=== PATIENT | female | born 1990 | race Two or more races ===

== ENCOUNTER 2017-07-23 10:05 | Emergency (ER) | payer OTHER ==
[2017-07-23 10:21] VITALS: BP 132/92; PULSE 88; TEMP 98.5; BMI 24.0
[2017-07-23] MEDS ORDERED: diphenhydrAMINE HCL 50 MG CAPSULE ONE (10:22)
[2017-07-23] MEDS ORDERED: predniSONE 20 MG TABLET (UD) ONE (10:23)
--- NOTE | 2017-07-23 10:25 | PDOC ---
History of Present Illness - General Chief Complaint: Allergic Reaction Stated Complaint: ALLERGIC RASH Time Seen by Provider: 07/23/17 10:25 History Source: Patient Exam Limitations: No Limitations - History of Present Illness Initial Comments: 07/23/17 10:51 Pt presents to the ED complaining of hives to both forearms, that has been persistent for two days. History of multiple food allergies and psoriasis. States that she took her epi pen and benadryl for these symptoms yesterday, and that the symptoms resolved but recurred again this morning. Denies throat tightness, facial swelling, nausea or vomiting, lightheadness or syncope. Also denies rash to other parts of her body. Past History - Past Medical History Allergies/Adverse Reactions: Allergies Allergy/AdvReac Type Severity Reaction Status Date / Time MULTIPLE FOOD ALLERIGIES Allergy Intermediate Hives Uncoded 07/23/17 10:18 Home Medications: Ambulatory Orders Albuterol Sulfate Inhaler - [Ventolin Hfa Inhaler -] 1 - 2 inh PO Q4H PRN #1 inhaler 04/28/17 Clotrimazole [Lotrimin 1% Solution -] 1 applic TP BID 04/28/17 Guaifenesin AC [Robitussin AC] 10 ml PO HS #100 ml MDD 40 ml 04/28/17 Prednisone [Prednisone 50 MG TABLETS] 50 mg PO DAILY #4 tablet 07/23/17 COPD: No - Suicide/Smoking/Psychosocial Hx Smoking History: Never smoked Hx Alcohol Use: No Drug/Substance Use Hx: No Substance Use Type: None Review of Systems - Review of Systems Able to Perform ROS?: Yes Is the patient limited Egyptian proficient: No Constitutional: No: Symptoms Reported, See HPI, Chills, Diaphoresis, Fever, Loss of Appetite, Malaise, Night Sweats, Weakness, Weight Stable, Unintentional Wgt. Loss, Unexplained wgt Loss, Other HEENTM: No: Symptoms Reported, See HPI, Eye Pain, Blurred Vision, Tearing, Recent change in vision, Double Vision, Cataracts, Ear Pain, Ocular Prothesis, Ear Discharge, Nose Pain, Nose Congestion, Tinnitus, Nose Bleeding, Hearing Loss , Throat Pain, Throat Swelling, Mouth Pain, Dental Problems, Difficulty Swallowing, Mouth Swelling, Other Respiratory: No: Symptoms reported, See HPI, Cough, Orthopnea, Shortness of Breath, SOB with Exertion, SOB at Rest, Stridor, Wheezing, Productive cough, Hemoptysis, Other Cardiac (ROS): No: Symptoms Reported, See HPI, Chest Pain, Edema, Irregular Heart Rate, Lightheadedness, Palpitations, Syncope, Chest Tightness, Other ABD/GI: No: Symptoms Reported, See HPI, Abdominal Distended, Abd. Pain w/ defecation, Blood Streaked Bowels, Constipated, Diarrhea, Difficulty Swallowing , Nausea, Poor Appetite, Poor Fluid Intake, Rectal Bleeding, Vomiting, Indigestion, Abdominal cramping, Tarry Stools, Other *Physical Exam - Vital Signs Last Vital Signs Temp Pulse Resp BP Pulse Ox 98.5 F 88 16 132/92 99 07/23/17 10:15 07/23/17 10:15 07/23/17 10:15 07/23/17 10:15 07/23/17 10:15 - Physical Exam General Appearance: Yes: Nourished, Appropriately Dressed HEENT: positive: Normal ENT Inspection Neck: positive: Supple Respiratory/Chest: positive: Lungs Clear, Normal Breath Sounds Cardiovascular: positive: Regular Rhythm, Regular Rate, S1, S2 Integumentary: positive: Normal Color, Dry, Hives (hives on forearms only. no other rashes observed on complete skin exam) Neurologic: positive: Fully Oriented, Alert, Normal Mood/Affect Medical Decision Making - Medical Decision Making 07/23/17 10:57 Pt presents to the ED with hives to both forearms that have been intermittent for two days. No facial symptoms, no indications of anaphylaxis. Will treat with prednisone, briefly observe to watch for worsening reaction and likely discharge home with rx for prednisone and follow up with her PMD. *DC/Admit/Observation/Transfer Diagnosis at time of Disposition: Allergic reaction Qualifiers: Encounter type: initial encounter Qualified Code(s): T78.40XA - Allergy, unspecified, initial encounter - Discharge Dispostion Disposition: HOME Condition at time of disposition: Good Admit: No - Prescriptions Prescriptions: Prednisone [Prednisone 50 MG TABLETS] 50 mg PO DAILY #4 tablet - Referrals Referrals: Juhi Ely MD [Primary Care Provider] - - Patient Instructions Printed Discharge Instructions: DI for General Allergic Reactions Additional Instructions: return to the ED for worsening hives, facial swelling, nausea and vomiting, passing out. if you have facial swelling, passing out or shortness of breath, use your epi pen and then call 911. Make sure that you see your doctor this week. you should visit the ED if you need to use your epi pen. - Post Discharge Activity
== END 2017-07-23 11:33 | disposition home or self-care (01) ==
LOC: FER 10:05
DX: T78.40XA Allergy, unspecified, initial encounter (principal)
CPT/HCPCS: 99282-25

== ENCOUNTER 2017-07-29 11:35 | Emergency (ER) | payer OTHER ==
[2017-07-29 11:45] VITALS: BP 128/92; PULSE 82; TEMP 98.2; BMI 24.5
--- NOTE | 2017-07-29 11:51 | PDOC ---
Attending Attestation - Resident Resident Name: Óscar Sousa - HPI HPI: 07/31/17 02:06 Pt presents to the ED complaining of rash to both forearms and legs. Denies pruritis. Denies fever, nausea or vomiting. Denies facial swelling or shortness of breath. - Physicial Exam PE: 07/31/17 02:07 Agree with resident exam. Patient has raised, blanching lesions with central clearing. No other injuries. - Medical Decision Making 07/31/17 02:13 Agree with resident plan. Patient presents with rash consistent with erythema annularum cetrifugale. Most likely secondary to allergy. No urticaria or signs of anaphylaxis. Will treat with prednisone and discharge home with follow up with lockstitch shoulder joiner.
[2017-07-29] MEDS ORDERED: predniSONE 20 MG TABLET (UD) PO ONE (12:19)
[2017-07-29] MEDS ORDERED: predniSONE 20 MG TABLET (UD) ONE (12:21)
--- NOTE | 2017-07-29 12:40 | PDOC ---
History of Present Illness - General Chief Complaint: Rash Stated Complaint: PERSISTENT RASH ARMS, LEG Time Seen by Provider: 07/29/17 11:49 History Source: Patient Exam Limitations: No Limitations - History of Present Illness Initial Comments: 07/29/17 12:39 The patient is a 26F with a PMH of allergies, never had anaphylaxis, who presents to the ER with a rash. The patient states that she was seen 7 days ago in our facility for a similar rash which went away with benadryl and steroids ( given outpatient). 2 days ago, the rash has returned on her forearms and mildly on her proximal leg. She denies any CP or SOB or throat swelling. She denies any itchiness to her rash or pain. Past History - Past Medical History Allergies/Adverse Reactions: Allergies Allergy/AdvReac Type Severity Reaction Status Date / Time Fish Containing Products Allergy Verified 07/29/17 11:41 fish derived Allergy Verified 07/29/17 11:41 No Known Drug Allergies Allergy Verified 07/29/17 11:41 soybean Allergy Verified 07/29/17 11:41 strawberry Allergy Verified 07/29/17 11:41 tomato Allergy Verified 07/29/17 11:41 MULTIPLE FOOD ALLERIGIES Allergy Intermediate Hives Uncoded 07/29/17 11:41 Home Medications: Ambulatory Orders Clotrimazole [Lotrimin 1% Solution -] 1 applic TP BID 04/28/17 Prednisone [Prednisone 50 MG TABLETS] 50 mg PO DAILY #4 tablet 07/23/17 Diphenhydramine HCl [Benadryl -] 25 mg PO BID 07/29/17 Fexofenadine HCl [Erika Allergy] mg PO DAILY 07/29/17 Methylprednisolone [Medrol Dose Clement] 4 mg PO ASDIR #21 tablet 07/29/17 COPD: No Other medical history: MULTIPLE ALLERGIES - Suicide/Smoking/Psychosocial Hx Smoking History: Never smoked Have you smoked in the past 12 months: No Hx Alcohol Use: No Drug/Substance Use Hx: No Substance Use Type: None Review of Systems - Review of Systems Able to Perform ROS?: Yes Comments:: 07/29/17 12:50 GENERAL/CONSTITUTIONAL: No fever or chills. No weakness. HEAD, EYES, EARS, NOSE AND THROAT: No change in vision. No ear pain or discharge. No sore throat. CARDIOVASCULAR: No chest pain, palpitations, or lightheadedness. RESPIRATORY: No cough, wheezing, shortness of breath, or hemoptysis. GASTROINTESTINAL: No nausea, vomiting, diarrhea, constipation, or abdominal pain. GENITOURINARY: No dysuria, frequency, hematuria, or change in urination. MUSCULOSKELETAL: No joint or muscle swelling or pain. No neck or back pain. SKIN: Positive for rash. NEUROLOGIC: No headache, numbness, tingling, weakness, loss of consciousness, or change in strength/sensation. ENDOCRINE: No increased thirst. No abnormal weight change. HEMATOLOGIC/LYMPHATIC: No anemia, easy bleeding, or history of blood clots. ALLERGIC/IMMUNOLOGIC: Positive for allergies and skin rash. Is the patient limited Bhutanese proficient: No *Physical Exam - Vital Signs Last Vital Signs Temp Pulse Resp BP Pulse Ox 98.2 F 82 18 128/92 100 07/29/17 11:35 07/29/17 11:35 07/29/17 11:35 07/29/17 11:35 07/29/17 11:35 - Physical Exam Comments: 07/29/17 12:50 GENERAL: Well developed, well nourished. Awake and alert. No acute distress. HEENT: Normocephalic, atraumatic. Hearing grossly normal. Moist mucous membranes. PERRLA, EOMI. No conjunctival pallor. Sclera are non-icteric. Oropharynx is clear. NECK: Supple. Full ROM. No JVD. CARDIOVASCULAR: Regular rate and rhythm. No murmurs, rubs, or gallops. PULMONARY: No evidence of respiratory distress. Lungs clear to auscultation bilaterally. No wheezing, rales or rhonchi. ABDOMINAL: Soft. Non-tender. Non-distended. No rebound or guarding. GENITOURINARY: No CVA tenderness bilaterally. MUSCULOSKELETAL: Normal range of motion at all joints. No bony deformities or tenderness. EXTREMITIES: No cyanosis. No clubbing. No edema. No calf tenderness. SKIN: Warm and dry. Circular, blanchable, raised rash of multiple sizes present on forearms and on proximal leg. Normal capillary refill. No rashes. No jaundice. NEUROLOGICAL: Alert, awake, appropriate. Cranial nerves 2-12 intact. Normal speech. Gait is normal without ataxia. PSYCHIATRIC: Cooperative. Good eye contact. Appropriate mood and affect. ED Treatment Course - Medications Given in the ED: ED Medications Discontinued Medications Generic Name Dose Route Start Last Admin Trade Name Teresa PRMayra Reason Stop Dose Admin Prednisone 60 mg 07/29/17 12:19 07/29/17 12:25 Deltasone - PO 07/29/17 12:20 60 mg ONCE ONE Administration Medical Decision Making - Medical Decision Making 07/29/17 12:51 The patient is a 26F with a hx of allergies who presents with a recurrent rash on her forearms. The rash is not itchy but resembles urticaria. 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 Will give a medrol dose pack and will d/c with allergy and derm f/ u. Pt agrees and is ready for d/c. *DC/Admit/Observation/Transfer Diagnosis at time of Disposition: Rash - Discharge Dispostion Disposition: HOME Condition at time of disposition: Stable Admit: No - Prescriptions Prescriptions: Methylprednisolone [Medrol Dose Clement] 4 mg PO ASDIR #21 tablet - Referrals Referrals: Cathie Brothers MD [Staff Physician] - Miguel De La Cruz MD [Staff Physician] - - Patient Instructions Printed Discharge Instructions: DI for Rash Additional Instructions: Please return to the ER if symptoms persist, worsen, or new symptoms arise. Please follow up with your primary care physician in 2-3 days. Please follow up with Dr. Brothers, dermatology, and Dr. De La Cruz, ENT/Allergy. Please return to the ER if you have any signs or symptoms of chest pain, shortness of breath, uncontrollable fever, chills, nausea, vomiting, numbness, tingling, or weakness in any part of your body, changes in vision, or slurred speech. Please take your medications as prescribed. - Post Discharge Activity
== END 2017-07-29 12:55 | disposition home or self-care (01) ==
LOC: FER 11:35
DX: R21 Rash and other nonspecific skin eruption (principal)
CPT/HCPCS: 99282-25

== ENCOUNTER 2017-11-03 10:48 | Emergency (ER) | payer OTHER ==
[2017-11-03 11:04] VITALS: BP 130/85; PULSE 87; TEMP 97.8; BMI 26.4
--- NOTE | 2017-11-03 11:06 | PDOC ---
History of Present Illness - General History Source: Patient Exam Limitations: No Limitations - History of Present Illness Initial Comments: 11/03/17 10:49 27 yo F with h/o allergies, to various food items here today c/o bumps that are like hives. took allergy pill yesterday, min relief. states is not itchy. no lip or tongue swelling. no sob or wheezing. no new lotions or detergents or soaps. tried to see pcp but couldn't get in for evaluation today. no new medications 11/03/17 10:50 <Lorna Andres - Last Filed: 11/03/17 11:08> <Maty Oneill - Last Filed: 11/03/17 22:25> - General Chief Complaint: Allergic Reaction Stated Complaint: HIVES Time Seen by Provider: 11/03/17 10:49 Past History - Past Medical History COPD: No - Suicide/Smoking/Psychosocial Hx Smoking History: Never smoked Have you smoked in the past 12 months: No Hx Alcohol Use: No Drug/Substance Use Hx: No Substance Use Type: None <Lorna Andres - Last Filed: 11/03/17 11:08> <Maty Oneill - Last Filed: 11/03/17 22:25> - Past Medical History Allergies/Adverse Reactions: Allergies Allergy/AdvReac Type Severity Reaction Status Date / Time Fish Containing Products Allergy Verified 11/03/17 10:49 fish derived Allergy Verified 11/03/17 10:49 No Known Drug Allergies Allergy Verified 11/03/17 10:49 soybean Allergy Verified 11/03/17 10:49 strawberry Allergy Verified 11/03/17 10:49 tomato Allergy Verified 11/03/17 10:49 MULTIPLE FOOD ALLERIGIES Allergy Intermediate Hives Uncoded 11/03/17 10:49 Home Medications: Ambulatory Orders Secukinumab [Cosentyx Pen] 150 mg SQ ASDIR 11/03/17 predniSONE [Deltasone -] 20 mg PO BID #6 tablet 11/03/17 predniSONE [Deltasone -] 20 mg PO BID #6 tablet 11/03/17 Review of Systems - Review of Systems Constitutional: No: Chills, Diaphoresis, Fever Respiratory: No: Cough, Orthopnea Cardiac (ROS): No: Chest Pain ABD/GI: No: Abdominal Distended Musculoskeletal: No: See HPI Integumentary: Yes: Rash. No: Pruritus All Other Systems: Reviewed and Negative <Lorna Andres - Last Filed: 11/03/17 11:08> *Physical Exam - Physical Exam General Appearance: Yes: Appropriately Dressed HEENT: positive: Normal ENT Inspection, Other (no tongue or lip swelling. ) Respiratory/Chest: positive: Lungs Clear, Normal Breath Sounds Cardiovascular: positive: Regular Rhythm, Regular Rate, S1, S2 Gastrointestinal/Abdominal: positive: Normal Bowel Sounds, Flat, Soft. negative : Tender Integumentary: positive: Normal Color, Dry, Warm, Hives, Other (target like erythema multiforme like rash over extremities. plaque like lesions elbow) Neurologic: positive: Fully Oriented, Alert, Normal Mood/Affect <Lorna Andres - Last Filed: 11/03/17 11:08> - Vital Signs Last Vital Signs Temp Pulse Resp BP Pulse Ox 97.8 F 87 20 130/85 100 11/03/17 10:48 11/03/17 10:48 11/03/17 10:48 11/03/17 10:48 11/03/17 10:48 <Maty Oneill - Last Filed: 11/03/17 22:25> ED Treatment Course - ADDITIONAL ORDERS Additional order review: Laboratory Results 11/03/17 11:16 Urine HCG, Qual Negative - Medications Given in the ED: ED Medications Discontinued Medications Generic Name Dose Route Start Last Admin Trade Name Freq PRN Reason Stop Dose Admin Diphenhydramine HCl 50 mg 11/03/17 11:55 11/03/17 11:55 Benadryl - PO 11/03/17 11:56 50 mg NOW ONE Administration Prednisone 60 mg 11/03/17 11:55 11/03/17 11:56 Deltasone - PO 11/03/17 11:56 60 mg NOW ONE Administration <Maty Oneill - Last Filed: 11/03/17 22:25> Medical Decision Making - Medical Decision Making 11/03/17 10:51 27 yo with rash, plan steroids, benadryl and follow up [facility] dermatology . <Lorna Andres - Last Filed: 11/03/17 11:08> *DC/Admit/Observation/Transfer <Lorna Andres - Last Filed: 11/03/17 11:08> <Maty Oneill - Last Filed: 11/03/17 22:25> Diagnosis at time of Disposition: Urticaria, Erythema multiforme - Discharge Dispostion Disposition: HOME Condition at time of disposition: Improved - Prescriptions Prescriptions: predniSONE [Deltasone -] 20 mg PO BID #6 tablet - Patient Instructions Printed Discharge Instructions: Erythema Multiforme, Hives Additional Instructions: take prednisone 20 mg twice daily x 3 days starting tomorrow 11/04. return for any difficulty breathing, tongue or lip swelling or any conerns. you should follow up with your online marketing manager on sunday call to schedule. you can take benadryl 25 mg every 6 hours as needed for itching.
[2017-11-03] MEDS ORDERED: predniSONE 20 MG TABLET (UD) ONE ×2 (11:40→11:42)
[2017-11-03] MEDS ORDERED: diphenhydrAMINE HCL 25 MG CAPSULE (FP) PO ONE ×3 (11:40→11:55)
[2017-11-03] MEDS ORDERED: predniSONE 20 MG TABLET (UD) PO ONE ×2 (11:41→11:55)
[2017-11-03] MEDS ORDERED: diphenhydrAMINE HCL 50 MG CAPSULE PO ONE (11:42)
== END 2017-11-03 11:57 | disposition home or self-care (01) ==
LOC: FER 10:48
DX: L50.9 Urticaria, unspecified (principal); L51.9 Erythema multiforme, unspecified
CPT/HCPCS: 84703; 99281-25

== ENCOUNTER 2018-02-22 10:30 | Emergency (ER) | payer OTHER ==
[2018-02-22 10:36] VITALS: BP 129/65; PULSE 84; TEMP 99.1; BMI 27.7
[2018-02-22] MEDS ORDERED: DEXAMETHASONE SOD PHOSPHATE 10 MG/1 ML VIAL IM ONE (10:56)
[2018-02-22] MEDS ORDERED: DEXAMETHASONE SOD PHOSPHATE 10 MG/1 ML VIAL ONE ×2 (10:59→11:00)
--- NOTE | 2018-02-22 11:02 | PDOC ---
History of Present Illness - General Chief Complaint: Rash Stated Complaint: RED RASH HANDS AND FEET Time Seen by Provider: 02/22/18 10:54 History Source: Patient Exam Limitations: Clinical Condition - History of Present Illness Initial Comments: 02/22/18 10:56 Patient with history of psoriasis present with complain of diffuse red rash to bilateral elbow and forearm and bilateral lower legs upon with this morning. Patient does not know what caused symptoms. Patient reported rash is very itchy. Denies any other symptoms Timing/Duration: 24 hours Past History - Past Medical History Allergies/Adverse Reactions: Allergies Allergy/AdvReac Type Severity Reaction Status Date / Time Fish Containing Products Allergy Verified 02/22/18 10:33 fish derived Allergy Verified 02/22/18 10:33 No Known Drug Allergies Allergy Verified 02/22/18 10:33 soybean Allergy Verified 02/22/18 10:33 strawberry Allergy Verified 02/22/18 10:33 tomato Allergy Verified 02/22/18 10:33 MULTIPLE FOOD ALLERIGIES Allergy Intermediate Hives Uncoded 02/22/18 10:33 Home Medications: Ambulatory Orders Hydrocortisone 2.5% Topical Cr [Anusol-Hc -] 1 applic TP BID 7 Days #1 tube Hydroxyzine HCl 25 mg PO TID PRN #20 tablet 02/22/18 NK [No Known Home Medication] 02/22/18 Prednisone [Deltasone] 20 mg PO BID 4 Days #8 tablet 02/22/18 COPD: No Other medical history: PSORIASIS - Suicide/Smoking/Psychosocial Hx Smoking History: Never smoked Have you smoked in the past 12 months: No Hx Alcohol Use: No Drug/Substance Use Hx: No Substance Use Type: None Review of Systems - Review of Systems Able to Perform ROS?: Yes Is the patient limited Japanese proficient: No Constitutional: No: Chills, Diaphoresis, Fever, Loss of Appetite, Malaise, Night Sweats, Weakness, Weight Stable, Unintentional Wgt. Loss, Unexplained wgt Loss, Other HEENTM: No: Eye Pain, Blurred Vision, Tearing, Recent change in vision, Double Vision, Cataracts, Ear Pain, Ocular Prothesis, Ear Discharge, Nose Pain, Nose Congestion, Tinnitus, Nose Bleeding, Hearing Loss, Throat Pain, Throat Swelling , Mouth Pain, Dental Problems, Difficulty Swallowing, Mouth Swelling, Other Respiratory: No: Cough, Orthopnea, Shortness of Breath, SOB with Exertion, SOB at Rest, Stridor, Wheezing, Productive cough, Hemoptysis, Other Cardiac (ROS): No: Chest Pain, Edema, Irregular Heart Rate, Lightheadedness, Palpitations, Syncope, Chest Tightness, Other ABD/GI: No: Abdominal Distended, Abd. Pain w/ defecation, Blood Streaked Bowels , Constipated, Diarrhea, Difficulty Swallowing, Nausea, Poor Appetite, Poor Fluid Intake, Rectal Bleeding, Vomiting, Indigestion, Abdominal cramping, Tarry Stools, Other Musculoskeletal: No: Back Pain, Gout, Joint Pain, Joint Swelling, Muscle Pain, Muscle Weakness, Neck Pain, Joint Stiffness, Other Integumentary: Yes: See HPI, Pruritus (over rash area), Rash (b/l posterior elbow, forearm and lower legs) All Other Systems: Reviewed and Negative *Physical Exam - Vital Signs Last Vital Signs Temp Pulse Resp BP Pulse Ox 99.1 F 84 19 129/65 98 02/22/18 10:33 02/22/18 10:33 02/22/18 10:33 02/22/18 10:33 02/22/18 10:33 - Physical Exam Comments: 02/22/18 10:58 GENERAL: Well developed, well nourished. Awake and alert. No acute distress. HEENT: Normocephalic, atraumatic. PERRLA, EOMI. No conjunctival pallor. Sclera are non- icteric. Moist mucous membranes. Oropharynx is clear. NECK: Supple. Full ROM. No JVD. Carotid pulses 2+ and symmetric, without bruits. No thyromegaly. No lymphadenopathy. CARDIOVASCULAR: Regular rate and rhythm. No murmurs, rubs, or gallops. Distal pulses are 2+ and symmetric. PULMONARY: No evidence of respiratory distress. Lungs clear to auscultation bilaterally. No wheezing, rales or rhonchi. ABDOMINAL: Soft. Non-tender. Non-distended. No rebound or guarding. No organomegaly. Normoactive bowel sounds. MUSCULOSKELETAL Normal range of motion at all joints. No bony deformities or tenderness. No CVA tenderness. EXTREMITIES: No cyanosis. No clubbing. No edema. No calf tenderness. SKIN: Moderate amounts of urticarial rash to posterior elbow and forearm. Multiple urticarial rash to [place] of bilateral lower legs. Multiple psoriatic plaques to bilateral elbows. Warm and dry. NEUROLOGICAL: Alert, awake, appropriate. Cranial nerves 2-12 intact. No deficits to light touch and temperature in face, upper extremities and lower extremities. No motor deficits in the in face, upper extremities and lower extremities. Normoreflexic in the upper and lower extremities. Normal speech. Toes are down- going bilaterally. Gait is normal without ataxia. PSYCHIATRIC: Cooperative. Good eye contact. Appropriate mood and affect. General Appearance: Yes: Nourished, Appropriately Dressed. No: Apparent Distress Medical Decision Making - Medical Decision Making 02/22/18 11:01 Patient with history of psoriasis present with complain of rash to bilateral elbow forearm and bilateral lower legs. Exam shows urticarial rash to bilateral forearm and elbow and fronts of lower legs consistent with ALLERGY dermatitis. Patient also with psoriatic plaques and bilateral elbow. Decadron 10 mg IM given. Patient will be discharged home on prednisone and hydroxyzine with dermatology follow-up. *DC/Admit/Observation/Transfer Diagnosis at time of Disposition: Urticaria, Rash, Psoriasis - Discharge Dispostion Disposition: HOME Condition at time of disposition: Stable Decision to Admit order: No - Prescriptions Prescriptions: Hydrocortisone 2.5% Topical Cr [Anusol-Hc -] 1 applic TP BID 7 Days #1 tube Hydroxyzine HCl 25 mg PO TID PRN #20 tablet PRN Reason: itching and rash Prednisone [Deltasone] 20 mg PO BID 4 Days #8 tablet - Referrals Referrals: Kevin Benavides MD [Non Staff, Medical] - - Patient Instructions Printed Discharge Instructions: Urticaria (Alternative Therapy), Hives Additional Instructions: Take medication as prescribed. Follow up with preferred dermatology in 5 days if no improvement - Post Discharge Activity
== END 2018-02-22 11:17 | disposition home or self-care (01) ==
LOC: JERFT 10:30
PROC: 3E0233Z Introduction of Anti-inflammatory into Muscle, Percutaneous Approach (ICD-10-PCS; principal; 2018-02-22)
DX: L40.9 Psoriasis, unspecified (principal); R21 Rash and other nonspecific skin eruption; L50.9 Urticaria, unspecified
CPT/HCPCS: 96372; 99281-25; J1100